=== PATIENT | female | born 1960 ===

== ENCOUNTER 2017-05-26 14:07 | Outpatient (CLI) | payer OTHER ==
--- NOTE | 2017-05-26 15:25 | XRay Report ---
Bilateral knees: Bilateral knee pain. Standing images are obtained. There is good alignment and mineralization of both knees. Large periarticular spurs involve the medial compartment of the left knee with severe narrowing of the joint space. The articular surfaces however appeared generally smooth. The is a moderate-sized spur involving the patella with small inferior spur. No swelling and no effusion. There is stabilizing hardware along the medial side of the right proximal tibia with a healed fracture of the proximal shaft. Large periarticular spurs involve the medial compartment with severe narrowing of the joint space. Both joint spaces are probably narrowed with the medial more severely so. Small superior and inferior patellar spurs. No swelling and no joint effusion. Impression: Bilateral degenerative knee changes most severely affecting the medial compartments bilaterally.
== END 2017-05-26 14:08 | disposition home or self-care (01) ==
LOC: SPVIMAG 14:07
PROVIDERS: ATTEND Orthopaedic Surgery
DX: M17.0 Bilateral primary osteoarthritis of knee (principal); S82.101D Unspecified fracture of upper end of right tibia, subsequent encounter for closed fracture with routine healing; X58.XXXD Exposure to other specified factors, subsequent encounter